=== PATIENT | female | born 1980 | race Hispanic/Latino ===

== ENCOUNTER 2024-04-18 06:28 | Day surgery (SDC) | payer BC ==
[2024-04-13 12:38] VITALS: BP 164/92; PULSE 91; RESP 16; TEMP 97.2
[2024-04-13 12:49] LABS: ALBUMIN 3.5 g/dL (3.5-5.0); BILIRUBIN,DIRECT 0.2 mg/dL (0.0-0.3); BILIRUBIN,TOTAL 0.9 mg/dL (0.2-1.0); TOTAL PROTEIN, SERUM 8.1 g/dL (6.0-8.3)
[~2024-04-18] VITALS: Ht 160 cm; Wt 154.7 kg
[2024-04-18] VITALS (18 sets, daily range): BP systolic 120–144; BP diastolic 65–93; PULSE 76–94; RESP 13–43; TEMP 96.8–97.9; O2SAT 99
[~2024-04-18 06:28] MED LIST: ERGO500093 PO
[2024-04-18] MEDS: 0.9%NACL 1000ML 1,000 ML IV ONE (07:14)
[2024-04-18] MEDS ORDERED: proPOFol 10 MG/ML 20ML VIAL IV ONE ×2 (08:04→08:29)
[2024-04-18] MEDS ORDERED: LIDOCAINE PF 100MG/5ML (2%) SYRINGE 5ML ONE (08:04)
[2024-04-18] MEDS ORDERED: FENTanyl CITRate PF 50 MCG/1 ML 2ML VIAL ONE ×2 (08:05)
[2024-04-18] MEDS ORDERED: SUCCINYLCHOLINE CHLORIDE 20 MG/ML 10 ML VIAL ONE (08:07)
[2024-04-18] MEDS ORDERED: rocuRONium bROMide 10MG/1ML 5ML VL ONE (08:07)
[2024-04-18] MEDS ORDERED: ondanSETRON 4MG INJ ONE (08:15)
[2024-04-18] MEDS ORDERED: dexaMETHasone SOD PHOSPHATE 4 MG/ML 1ML VIAL ONE (08:15)
[2024-04-18] MEDS ORDERED: ketOROlac 30MG VIAL (30MG/ML) ONE (08:53)
[2024-04-18] MEDS ORDERED: NEOSTIGMINE METHYLSULFATE 1MG/ML IV ONE (09:00)
[2024-04-18] MEDS ORDERED: GLYCOPYRROLATE 0.2 MG/ML 5 ML VIAL ONE (09:00)
--- NOTE | 2024-04-18 09:00 | OP ---
Operative Note: DATE OF PROCEDURE: 04/18/24 SURGEON: WANDER COLON MD RUBBER OFF: [NONE] ANESTHESIA: [GENERAL] ANESTHESIOLOGIST/UNDERWRITING ANALYST: [GENERAL] PREOPERATIVE DIAGNOSIS: [AMENORRHEA, THICK ENDOMETRIUM, RONALD PAP] POSTOPERATIVE DIAGNOSIS: [SAME] SYNOPSIS: [NA] PROCEDURE: [HYSTEROSCOPY d&c, LILETTA IUD INSERTION, CERVICAL BIOPSY 4 PM AND ENDOCERVICAL CURETTAGE] ESTIMATED BLOOD LOSS: [5 CC] INDICATIONS: [NA] DESCRIPTION OF PROCEDURE: [THE PATIENT ANDHER SIG OTHER WERE VISITED INTHE HOLDING AREA AND THE OPERATION STATED IN PLAIN ESTONIAN, SHE HAD NO ADDITIONAL QUESTIONS AND WAS READY TO PROCEED. SHE WAS TAKEN TO THE OPERATING ROOM AND PLACED UNDER GENERAL ANESTHESIA, PREPPED AND DRAPED IN THE USUAL STERILE FASHION IN THE DORSAL LITHOTOMY POSITION AND HER BLADDER WAS DRAINED. A TIME OUT WAS TAKEN TO IDENTIFY THE PATIENT THE OPERATION HER ALLERGIES AND THE FACT THAT NO ANTIBIOTICS WERE GIVEN. A RIGHT ANGLE WAS PLACED INTHEVAGINA AND THE ANTERIOR LIP OF THE CERVIX IDENTIFIED AND GRASPED WITH A SINGLE TOOTH TENACULUM, UTERUS SOUNDED TO 8-9 CM AND THE CERVIX WAS DILATED TO ABOUT 8 MM AND THE HYSTEROSCOPE WITH NORMAL SALINE DISTENSION MEDIA WAS PLACED WITH FINDINGS OF FLUFFY TISSUE AND NORMAL OSTIA, THE HYSTEROSCOPE WAS REMOVED AND SHARP CURETTAGE WAS CARRIED OUT UNTIL ALL SURFACES WERE GRITTY AND ADDITIONAL VISUALIZATION AND CURETTAGE WAS DONE UNTIL ALL WAS CLEAN. THE ENDOCERVICAL CURETTAGE WAS DONE PRIOR TO THE HYSTEROSCOPY AND A BIOPSY RANDOM FROM 4 PM WAS TAKEN, THE LILETTA IUD WAS PLACED IN THE USUAL FASHION AND THE STRINGS TRIMMED TO 3 CM. SILVER NITRATE WAS UTILIZED TO HEMOSTASE THE BIOPSY SITE, THE RETRACTORS AND SINGLE TOOTH TENACULUM WERE REMOVED. THE PATIENT TOLERATED THE PROCEDURE WELL AND ALL SPONGE, LAP AND NEEDLE COUNTS WERE CORRECT AT THE END OF THE CASE, THE PATIENT WAS TAKEN TO THE RECOVERY ROOM IN STABLE CONDITION AND HER SIG OTHER WILL BE NOTIFIED OF HER STABILITY. WANDER COLON MD FACOG FACS] WANDER COLON MD Apr 18, 2024 09:00
[2024-04-18] MEDS: acetaMINOPHEN 1,000 MG/100 ML VIAL IV ONE (10:19)
[2024-04-18] MEDS: SUGAMMADEX SODIUM 200 MG/2 ML VIAL IV ONE (10:19)
[2024-04-18] MEDS: SILVER NITRATE APPLICATOR 1 SWAB TP ONE (14:26)
== END 2024-04-18 11:20 | disposition home or self-care (01) ==
LOC: DAH 06:28
PROVIDERS: ATTEND Obstetrics & Gynecology
DX: N91.2 Amenorrhea, unspecified (principal); D06.0 Carcinoma in situ of endocervix; R93.89 Abnormal findings on diagnostic imaging of other specified body structures; N84.0 Polyp of corpus uteri; Z90.49 Acquired absence of other specified parts of digestive tract; Z79.84 Long term (current) use of oral hypoglycemic drugs; Z79.899 Other long term (current) drug therapy; Z98.890 Other specified postprocedural states
CPT/HCPCS: 80076; 84703; 36415; 58558; 57500; 81025; 88305; 94660; 58300; A6260; J1100; A4663; J7030 ×2; A4351; A4355; J3010 ×2; J0330; J3490 ×2; J2003; J2704 ×2; J2405; J1885; J2710; A4215; A4222; A4221; A4600

== ENCOUNTER 2024-05-23 06:51 | Day surgery (SDC) | payer BC ==
[2024-05-22 10:07] VITALS: BP 139/85; PULSE 80; RESP 18; TEMP 97.2
[2024-05-22 10:31] LABS: POTASSIUM 4.1 mmol/L (3.5-5.1)
[2024-05-22 10:32] LABS: ALBUMIN 3.2 g/dL (3.5-5.0); BILIRUBIN,DIRECT 0.1 mg/dL (0.0-0.3); BILIRUBIN,TOTAL 0.8 mg/dL (0.2-1.0); CREATININE 0.7 mg/dL (0.5-1.0); TOTAL PROTEIN, SERUM 7.9 g/dL (6.0-8.3)
[2024-05-22 11:37] LABS: BASOPHILS # (AUTO) 0.04 K/uL (0.00-0.20); BASOPHILS % (AUTO) 0.5 % (0.0-5.0); EOSINOPHILS # (AUTO) 0.16 K/uL (0.00-0.70); EOSINOPHILS % (AUTO) 1.9 % (0.0-8.0); HEMATOCRIT 45.8 % (36-48); IMMATURE GRANULOCYTE ABSOLUTE 0.06 K/uL (0-1); LYMPHOCYTES # (AUTO) 1.9 K/uL (1.0-4.8); MEAN CORPUSCULAR HEMOGLOBIN 30.1 pg (27.0-33.0); MEAN CORPUSCULAR HGB CONC 32.1 g/dL (32.0-36.0); MEAN CORPUSCULAR VOLUME 93.7 fL (79-99); MONOCYTES # (AUTO) 0.5 K/uL (0.1-1.0); MONOCYTES % (AUTO) 5.7 % (3.0-13.0); NEUTROPHILS # (AUTO) 5.6 K/uL (1.8-7.7); NEUTROPHILS % (AUTO) 68.2 % (40.0-77.0); PLATELET COUNT (AUTO) 389 K/uL (130-400); RED BLOOD CELL COUNT(AUTO) 4.89 MIL/uL (4.00-5.50); RED CELL DISTRIBUTION WIDTH 13.3 % (11.0-15.5); WHITE BLOOD COUNT (AUTO) 8.3 K/uL (4.8-10.8)
[~2024-05-23] VITALS: Ht 160 cm; Wt 156.0 kg
[2024-05-23] VITALS (14 sets, daily range): BP systolic 134–198; BP diastolic 69–102; PULSE 81–112; RESP 16–53; TEMP 97–97.3
[2024-05-23] MEDS ORDERED: LIDOCAINE PF 100MG/5ML (2%) SYRINGE 5ML ONE (07:26)
[2024-05-23] MEDS ORDERED: GLYCOPYRROLATE 0.2 MG/ML 5 ML VIAL ONE (07:26)
[2024-05-23] MEDS ORDERED: dexaMETHasone SOD PHOSPHATE 4 MG/ML 1ML VIAL ONE (07:26)
[2024-05-23] MEDS ORDERED: MIDAZOLAM HCL 1 MG/ML 2ML VIAL ONE (07:26)
[2024-05-23] MEDS ORDERED: ondanSETRON 4MG INJ ONE (07:26)
[2024-05-23] MEDS ORDERED: proPOFol 10 MG/ML 20ML VIAL IV ONE (07:27)
[2024-05-23] MEDS ORDERED: rocuRONium bROMide 10MG/1ML 5ML VL ONE (07:27)
[2024-05-23] MEDS ORDERED: ketOROlac 30MG VIAL (30MG/ML) ONE (07:27)
[2024-05-23] MEDS: 0.9%NACL 1000ML 1,000 ML IV ONE (07:27)
[2024-05-23] MEDS ORDERED: SUCCINYLCHOLINE CHLORIDE 20 MG/ML 10 ML VIAL ONE (07:27)
[2024-05-23] MEDS ORDERED: NEOSTIGMINE METHYLSULFATE 1MG/ML IV ONE (07:27)
[2024-05-23] MEDS ORDERED: FENTanyl CITRate PF 50 MCG/1 ML 2ML VIAL ONE (07:28)
[2024-05-23] MEDS ORDERED: FERRIC SUBSULFATE ML ONE (07:50)
[2024-05-23] MEDS ORDERED: LIDOCAINE 1%-EPI 1:100,000 20 ML VIAL ONE (08:11)
[2024-05-23] MEDS: LIDOCAINE 1%-EPI 1:100,000 20 ML VIAL IJ ONE (08:13)
[2024-05-23] MEDS: STRONG IODINE SOLN 14ML BOTTLE MISC ONE (08:16)
[2024-05-23] MEDS ORDERED: STRONG IODINE SOLN 14ML BOTTLE ONE (08:29)
--- NOTE | 2024-05-23 08:59 | OP ---
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 She was taken to the operating r oom and placed under general anesthesia in the usual fashion in the [facility] and a time out was taken to confirm her identity her allergies and the fact that no antibiotics were given. A right angle was placed in the vagina and the anterior lip of the cervix grasped with a single tooth tenaculum, the iud strings were present, lugol's solution was placed with very little nonstaining seen externally, 3 and 9 oclock figure of eight sutures were placed and 1% lidocaine was injected at 2/4/8/10 pm and the cervix sounded to about 3 cm, the iud string was tucked into the canal and the scalpel was used to excise a cone shaped specimen and it was removed with scissors, and in the process the iud was removed. Endocervical curettage was carried out and the base of the excision was cauterizedwith the bovie, the iud was replaced inthe uterus and monsel's was placed. the stay sutures were cut. there was very scanty bleeding at the conclusion of the case the tenaculum and right angles were removed, the patient tolerated the procedure well and sponge lap and needle counts were correct at the end of the case and the will becalled to notify him of the patient's stability. wander choi md facog facs ] WANDER CHOI MD May 23, 2024 08:59
[2024-05-23] MEDS: LAbetaLOL 20MG SYG IV ONE (09:21)
== END 2024-05-23 10:10 | disposition home or self-care (01) ==
LOC: DAH 06:51
PROVIDERS: ATTEND Obstetrics & Gynecology
DX: D06.9 Carcinoma in situ of cervix, unspecified (principal); E66.01 Morbid (severe) obesity due to excess calories; Z90.49 Acquired absence of other specified parts of digestive tract; Z79.899 Other long term (current) drug therapy; Z68.44 Body mass index [BMI] 60.0-69.9, adult
CPT/HCPCS: 80076; 80048; 84703; 85025; 36415; 57520; 88305; 88307; 88360; 88342; A6260; J1100; A4663; A4351; J3010; J3490 ×4; J0330; J7030; J2003; J2250; J2704; J2405; J1885; J2710; A4649; A4215; A4223; A4222; A4221